=== PATIENT | male | born 2000 | race Caucasian/White ===

== ENCOUNTER 2020-02-16 10:11 | Emergency (ER) | payer OTHER ==
--- NOTE | 2020-02-16 12:18 | EDPHYS ---
Physician Documentation [facility] Name: Rajendra Whitehead Jr Age: 19 yrs Sex: Male : 2000 Arrival Date: 02/16/2020 Time: 10:17 Bed 16 Private MD: ED Physician Prasad Ndiaye HPI: 02/15 11:46 This 19 yrs old Male presents to ER via Ambulatory with complaints of High mh7 Blood Pressure, . 11:46 The patient has elevated blood pressure and discovered this at home, with a home mh7 device. Onset: The symptoms/episode began/occurred 6 month(s) ago. Modifying factors: The symptoms are aggravated by nothing, The symptoms are alleviated by prescription meds, RODGER-inhibitor. Associated signs and symptoms: Pertinent negatives: chest pain, dizziness, dyspnea, headache, lightheadedness, nausea, visual changes, vomiting, weakness. Severity of symptoms: At its worst the blood pressure was 134 mm Hg, in the emergency department the blood pressure is improved, markedly. The patient has experienced similar episodes in the past, chronically. Patient states that his blood pressure was slightly elevated before work today at 134/70. He states that he was just started on medication 4 days ago when BP was 180's. He states that he has had intermittent numbness/tingling sensation to his left foot for about 3 months. Denies any chest pain, SOB, abdominal pain, nausea, vomiting, dizziness, or weakness.. Historical: - Allergies: 11:02 No Known Allergies; ss - PSHx: 11:02 None; ss - Social history:: Smoking status: Patient reports the use of cigarette tobacco products, smokes one-half pack cigarettes per day, Patient uses alcohol, only on a social basis. Patient/guardian denies using street drugs. ROS: 11:46 Constitutional: Negative for fever, chills, and weight loss, Eyes: Negative for injury, mh7 pain, redness, and discharge, ENT: Negative for injury, pain, and discharge, Neck: Negative for injury, pain, and swelling, Cardiovascular: Negative for chest pain, palpitations, and edema, Respiratory: Negative for shortness of breath, cough, wheezing, and pleuritic chest pain, Abdomen/GI: Negative for abdominal pain, nausea, vomiting, diarrhea, and constipation, Back: Negative for injury and pain, : Negative for injury, bleeding, discharge, and swelling, Skin: Negative for injury, rash, and discoloration, Psych: Negative for depression, anxiety, suicide ideation, homicidal ideation, and hallucinations, Allergy/Immunology: Negative for hives, rash, and allergies, Endocrine: Negative for neck swelling, polydipsia, polyuria, polyphagia, and marked weight changes, Hematologic/Lymphatic: Negative for swollen nodes, abnormal bleeding, and unusual bruising. Exam: 11:46 Constitutional: This is a well developed, well nourished patient who is awake, alert, mh7 and in no acute distress. Head/Face: Normocephalic, atraumatic. Eyes: Pupils equal round and reactive to light, extra-ocular motions intact. Lids and lashes normal. Conjunctiva and sclera are non-icteric and not injected. Cornea within normal limits. Periorbital areas with no swelling, redness, or edema. ENT: Nares patent. No nasal discharge, no septal abnormalities noted. Tympanic membranes are normal and external auditory canals are clear. Oropharynx with no redness, swelling, or masses, exudates, or evidence of obstruction, uvula midline. Mucous membranes moist. Neck: Trachea midline, no thyromegaly or masses palpated, and no cervical lymphadenopathy. Supple, full range of motion without nuchal rigidity, or vertebral point tenderness. No Meningismus. Chest/axilla: Normal chest wall appearance and motion. Nontender with no deformity. No lesions are appreciated. Cardiovascular: Regular rate and rhythm with a normal S1 and S2. No gallops, murmurs, or rubs. Normal PMI, no JVD. No pulse deficits. Respiratory: Lungs have equal breath sounds bilaterally, clear to auscultation and percussion. No rales, rhonchi or wheezes noted. No increased work of breathing, no retractions or nasal flaring. Abdomen/GI: Soft, non-tender, with normal bowel sounds. No distension or tympany. No guarding or rebound. No evidence of tenderness throughout. Back: No spinal tenderness. No costovertebral tenderness. Full range of motion. Skin: Warm, dry with normal turgor. Normal color with no rashes, no lesions, and no evidence of cellulitis. MS/ Extremity: Pulses equal, no cyanosis. Neurovascular intact. Full, normal range of motion. Neuro: Awake and alert, GCS 15, oriented to person, place, time, and situation. Cranial nerves II-XII grossly intact. Motor strength 5/5 in all extremities. Sensory grossly intact. Cerebellar exam normal. Normal gait. Psych: Awake, alert, with orientation to person, place and time. Behavior, mood, and affect are within normal limits. Vital Signs: 11:00 BP 125 / 78; Pulse 106; Resp 17; Temp 98.4; Pulse Ox 100% ; Pain 3/10; ss 12:11 BP 129 / 70; Pulse 81; Resp 18; Pulse Ox 100% on R/A; ph 13:13 BP 127 / 72; Pulse 78; Resp 18; Temp 97.9; Pulse Ox 99% on R/A; ph MDM: 11:36 Patient medically screened. [facility] 12:15 Differential diagnosis: hypertensive crisis, Malignant HTN, parasthesias. Data [facility] reviewed: vital signs, nurses notes. Data interpreted: customer experience specialist: rate is 93 beats/min, rhythm is normal sinus rhythm, regular, Interpretation: normal rate, normal rhythm, Pulse oximetry: on room air is 100 %. Interpretation: normal. Counseling: I had a detailed discussion with the patient and/or guardian regarding: the historical points, exam findings, and any diagnostic results supporting the discharge/admit diagnosis, the need for outpatient follow up, to return to the emergency department if symptoms worsen or persist or if there are any questions or concerns that arise at home. Refusal of service: The patient/guardian displays adequate decision making capability and despite a detailed discussion of alternatives, benefits, risks, and consequences refuses: CT Scan, all lab tests, EKG. Administered Medications: No medications were administered Disposition: 02/16/20 12:17 Discharged to Home. Impression: Hypertension. - Condition is Stable. - Discharge Instructions: Hypertension, [id number]. - Work release form, Medication Reconciliation Form, Thank You Letter, Antibiotic Education, Prescription Opioid Use form. - Follow up: Private Physician; When: 1 - 2 days; Reason: Worsening of condition, Recheck today's complaints, Re-evaluation by your physician. - Problem is an ongoing problem. - Symptoms are resolved. Signatures: Ene Wray RN RN Angelita Ordoñez RN RN Prasad Ndiaye MD MD [facility] Corrections: (The following items were deleted from the chart) 13:13 12:17 02/16/2020 12:17 Discharged to Home. Impression: Hypertension. Condition is ph Stable. Forms are Medication Reconciliation Form, Thank You Letter, Antibiotic Education, Prescription Opioid Use. Follow up: Private Physician; When: 1 - 2 days; Reason: Worsening of condition, Recheck today's complaints, Re-evaluation by your physician. Problem is an ongoing problem. Symptoms are resolved. mh7
--- NOTE | 2020-02-16 12:18 | ER ---
Nurse's Notes [facility] Name: Rajednra Whitehead Jr Age: 19 yrs Sex: Male : 2000 Arrival Date: 02/16/2020 Time: 10:17 Bed 16 Private MD: Diagnosis: Hypertension Presentation: 02/15 11:00 Chief complaint: Patient states: BP has been elevated past week. Started new BP ss medication 4 days ago. Noticed left foot numbness today. Coronavirus screen: Proceed with normal triage. Patient denies a cough. Patient denies shortness of breath or difficulty breathing. Patient denies measured and/or subjective temperature greater than 100.4F prior to today's visit. Patient denies travel on a cruise ship or to a country the [facility] currently lists as an affected area. Patient denies contact with known and/or suspected case of COVID-19. Ebola Screen: Patient denies travel to an Ebola-affected area in the 21 days before illness onset. Initial Sepsis Screen: Does the patient meet any 2 criteria? HR > 90 bpm. No. Patient's initial sepsis screen is negative. Risk Assessment: Do you want to hurt yourself or someone else? Patient reports no desire to harm self or others. Onset of symptoms was February 12, 2020. 11:00 Method Of Arrival: Ambulatory ss 11:00 Acuity: MARY 3 ss 11:55 Initial Sepsis Screen: Does the patient have a suspected source of infection? No. ph Patient's initial sepsis screen is negative. Historical: - Allergies: 11:02 No Known Allergies; ss - PSHx: 11:02 None; ss - Social history:: Smoking status: Patient reports the use of cigarette tobacco products, smokes one-half pack cigarettes per day, Patient uses alcohol, only on a social basis. Patient/guardian denies using street drugs. Screenin:55 Abuse screen: Denies threats or abuse. Denies injuries from another. Nutritional ph screening: No deficits noted. Tuberculosis screening: No symptoms or risk factors identified. Fall Risk None identified. Assessment: 11:45 General: Appears in no apparent distress. comfortable, slender, well groomed, Behavior ph is calm, cooperative, appropriate for age, Denies fever, feeling ill. Pain: Denies pain. Neuro: Level of Consciousness is awake, alert, obeys commands, Oriented to person, place, time, situation, Reports paresthesias in left foot. Cardiovascular: Capillary refill < 3 seconds in bilateral fingers Patient's skin is warm and dry. Respiratory: Airway is patent Respiratory effort is even, unlabored, Respiratory pattern is regular, symmetrical. Derm: Skin is intact, is healthy with good turgor, Skin is pink, warm \T\ dry. Musculoskeletal: Circulation, motion, and sensation intact. Range of motion: intact in all extremities. Vital Signs: 11:00 BP 125 / 78; Pulse 106; Resp 17; Temp 98.4; Pulse Ox 100% ; Pain 3/10; ss 12:11 BP 129 / 70; Pulse 81; Resp 18; Pulse Ox 100% on R/A; ph 13:13 BP 127 / 72; Pulse 78; Resp 18; Temp 97.9; Pulse Ox 99% on R/A; ph ED Course: 10:17 Patient arrived in ED. mr 11:02 Triage completed. 11:03 Arm band placed on. 11:04 Prasad Ndiaye MD is Attending Physician. [facility] 11:22 Angelita Ordoñez, RN is Primary Nurse. ph 11:55 Patient has correct armband on for positive identification. Bed in low position. Call ph light in reach. Side rails up X 1. Pulse ox on. NIBP on. Door closed. Noise minimized. Warm blanket given. 13:13 No provider procedures requiring assistance completed. Patient did not have IV access ph during this emergency room visit. Administered Medications: No medications were administered Outcome: 12:17 Discharge ordered by . [facility] 13:13 Patient left the ED. ph 13:13 Discharged to home ambulatory. ph 13:13 Condition: good 13:13 Discharge instructions given to patient, Instructed on discharge instructions, follow up and referral plans. Demonstrated understanding of instructions, follow-up care. Signatures: PuentesSusana lopez mr WrayEne RN RN Angelita Ordoñez RN RN Prasad Ndiaye MD MD [facility]
[2020-02-16 13:21] VITALS: BP 127/72; TEMP 97.9; O2SAT 99
== END 2020-02-16 13:13 | disposition home or self-care (01) ==
LOC: ER 10:11
DX: I10 Essential (primary) hypertension (principal); F17.210 Nicotine dependence, cigarettes, uncomplicated
CPT/HCPCS: 99283

== ENCOUNTER 2021-08-20 20:05 | Emergency (ER) | payer OTHER, SELFPAY ==
--- OUTSIDE RECORDS SUMMARY | 2021-08-20 20:07 | XMS REPORT | Continuity of Care Document ---
:2000 Author Organization [facility] t Address [address] [place] [address] Care Team Providers Name Role Phone Chelsea OCHOA Attending Clinician Unavailable ALVARO HOOVER Attending Clinician Unavailable Kerry MOONEY Admitting Clinician Unavailable Kerry CHOWDARY Admitting Clinician Unavailable Problems This patient has no known problems. Allergies, Adverse Reactions, Alerts This patient has no known allergies or adverse reactions. Medications This patient has no known medications. Procedures This patient has no known procedures. Encounters Start End Encounter Admission Attending Care Care Encounter Source Date/Time Date/Time Type Type Clinicians Facility Department ID 2021-07-05 2021-08-02 Inpatient [id number] 18:11:00 14:48:00 [place]KE 2021-06-15 2021-07-05 Inpatient Briana HOOVER [facility] MED [id number] 08:13:00 18:10:00 [place] Results This patient has no known results.
[2021-08-20 21:04] LABS: Urine Blood Trace-intact (Negative); Urine Glucose Negative (Negative); Urine Protein Negative (Negative); Urine pH 6.5 (5.0-7.0)
--- NOTE | 2021-08-20 21:32 | RAD REPORT ---
EXAM DESCRIPTION: CT - Stone Protocol - 08/20/2021 9:09 pm CLINICAL HISTORY: HEMATURIA COMPARISON: No comparisons TECHNIQUE: Axial 3 mm thick images were obtained without oral or IV contrast. The [id number] span s the entirety of the system including uppermost abdomen and lung bases. All CT scans are performed using dose optimization technique as appropriate and may include automated exposure control or mA/KV adjustment according to patient size. FINDINGS: No hydronephrosis is present and no obstructing ureteral calculi. No nonobstructing calcul i seen. No suspicious renal masses. Isodense masses and pyelonephritis are not excluded on a stone pr otocol CT scan. No significant adrenal finding. Urinary bladder is partially contracted around a Fole y catheter. This accentuates bladder wall thickness. Cystitis cannot be accurately assessed in the ab sence of IV contrast. No prostate abnormality seen. Imaged portions of the liver, spleen and pancreas show no suspicious findings on non-contrast imaging . Gallbladder is contracted. No biliary tree dilatation. PEG tube is in place. No gastric wall thickening or gastric dilatation. No dilated large or small bow el loops. The appendix is normal. Left lateral and posterior rectal wall is slightly thickened. Proct itis cannot be excluded. There is minimal stranding in the left perirectal fat. A few small sub centi meter perirectal lymph nodes are present. No hernia, mass or bulky lymphadenopathy noted. No free air, free fluid or pneumatosis. Schmorl's nodes are seen in the inferior endplate L2 and superior endplate L3. There is irregular con tour to the inferior endplate of T9. This is the first image of the examination and no further assess ment can be made. Patient may have a known prior thoracic injury. Given the history, this is probably not of acute significance but can be correlated with patient history. IMPRESSION: No hydronephrosis, obstructing calculus or acute renal or ureteral finding. Isodense masses and pyelonephritis are not excluded on stone protocol technique. Urinary bladder is partially contracted around a Giraldo catheter. This accentuates bladder wall thicke paula. Cystitis cannot be evaluated in the setting of a contracted bladder and absence of IV contrast.
[2021-08-20 21:39] LABS: Urine Bacteria LOADED /HPF (NONE SEEN); Urine RBC <5 /HPF (NONE SEEN)
[2021-08-20] MEDS ORDERED: CIPROFLOXACIN HCL 500 MG TAB ONE (22:00)
--- NOTE | 2021-08-20 22:01 | ER ---
Nurse's Notes [facility] Name: Rajendra Whitehead Jr Age: 21 yrs Sex: Male : 2000 Arrival Date: 08/20/2021 Time: 20:41 Bed 16 Private MD: Diagnosis: UTI/ Urinary tract infection, site not specified Presentation: 08/20 21:24 Chief complaint: EMS states: pt is a recent paraplegic, family at home had issues sm5 straight cathing pt. Coronavirus screen: Client denies travel out of the [place] in the last 14 days. At this time, the client does not indicate any symptoms associated with coronavirus-19. Ebola Screen: No symptoms or risks identified at this time. Initial Sepsis Screen: Does the patient meet any 2 criteria? No. Patient's initial sepsis screen is negative. Does the patient have a suspected source of infection? No. Patient's initial sepsis screen is negative. Risk Assessment: Do you want to hurt yourself or someone else? Patient reports no desire to harm self or others. Onset of symptoms was August 20, 2021. 21:24 Method Of Arrival: EMS: [facility] 21:24 Acuity: MARY 4 5 Triage Assessment: 21:56 General: Appears in no apparent distress. Behavior is calm, cooperative. Pain: Denies sm5 pain. Neuro: No deficits noted. Level of Consciousness is awake, alert, Oriented to person, place, time, situation. Cardiovascular: No deficits noted. Capillary refill < 3 seconds Patient's skin is warm and dry. Respiratory: No deficits noted. Airway is patent Trachea midline Respiratory effort is even, unlabored. : Urine is cloudy. Historical: - Allergies: 21:53 No Known Allergies; sm5 - Home Meds: 21:53 senna oral [Active]; baclofen 10 mg Oral tab 1 tab 3 times per day [Active]; midodrine sm5 oral [Active]; duloxetine oral [Active]; pantoprazole oral [Active]; gabapentin oral 3 times per day [Active]; acetaminophen Oral [Active]; - Immunization history:: Adult Immunizations up to date. - Social history:: Smoking status: unknown. Screenin:52 Abuse screen: Denies threats or abuse. Denies injuries from another. Nutritional sm5 screening: No deficits noted. Tuberculosis screening: No symptoms or risk factors identified. Fall Risk None identified. Total Mccartney Fall Scale indicates No Risk (0-24 pts). Assessment: 22:00 Reassessment: see triage assessment. 5 08/21 01:00 Reassessment: Patient states feeling better. 5 03:28 Reassessment: Patient states feeling better. 5 Vital Signs: 08/20 21:24 BP 137 / 85; Pulse 77; Resp 18; Pulse Ox 96% on R/A; sm5 08/21 03:29 BP 129 / 76; Pulse 52; Resp 17; Pulse Ox 97% on R/A; 5 ED Course: 08/20 20:41 Patient arrived in ED. cs9 20:42 Crystal Rossi FNP-C is [facility]. kb 20:42 Prasad Ndiaye MD is Attending Physician. kb 20:45 Georgia Tolbert RN is Primary Nurse. 5 21:00 Giraldo cath inserted, using sterile technique, 16 Fr., by dc, balloon inflated, to 5 gravity drainage, clamped. urine specimen collected. 21:09 CT Stone Protocol In Process Unspecified. EDIA 21:26 Triage completed. 5 21:52 Arm band placed on right ankle. 5 21:56 Patient has correct armband on for positive identification. Bed in low position. Side 5 rails up X2. 08/21 03:29 No provider procedures requiring assistance completed. Patient did not have IV access 5 during this emergency room visit. Administered Medications: 08/20 22:03 Drug: Cipro (ciprofloxacin) 500 mg Route: PO; [facility] 08/21 03:30 Follow up: Response: No adverse reaction [facility] Outcome: 08/20 22:00 Discharge ordered by . kb 08/21 03:30 Discharged to home via ambulance. [facility] Condition: good Discharge instructions given to patient, Instructed on discharge instructions, follow up and referral plans. medication usage, Demonstrated understanding of instructions, follow-up care, medications, Prescriptions given X 1. 03:30 Patient left the ED. 5 Addendum: 08/23/2021 07:25 Addendum: Culture Results: Positive urine culture. No further action required. Bacteria e b sensitive to prescribed antibiotic. Signatures: Dispatcher [employer] EDIA Crystal Rossi FNP-C FNP-Ckb Ruth Cazares Christine cs9 Georgia Tolbert, RN RN sm5
--- NOTE | 2021-08-20 22:01 | EDPHYS ---
Physician Documentation [facility] Name: Rajendra Whitehead Jr Age: 21 yrs Sex: Male : 2000 Arrival Date: 08/20/2021 Time: 20:41 Bed 16 Private MD: ED Physician Prasad Ndiaye HPI: 08/20 21:58 This 21 yrs old Male presents to ER via EMS with complaints of Problem With Urinary kb Catheter. 21:58 The patient presents with a Giraldo catheter problem, unable to self cath, urinary kb symptoms, dysuria. Onset: The symptoms/episode began/occurred 2 day(s) ago. Modifying factors: The symptoms are alleviated by nothing, the symptoms are aggravated by nothing. Associated signs and symptoms: Pertinent positives: dysuria, hematuria, unable to self cath, Pertinent negatives: abdominal pain, constipation, diarrhea, fever, nausea, vomiting. Severity of symptoms: At their worst the symptoms were moderate, in the emergency department the symptoms are unchanged. The patient has not experienced similar symptoms in the past. The patient has not recently seen a physician. Pt states they have been unable to do a straight cath tonight and he feels like his bladder is full. States they have had increasing difficulty over the last 2 days. Reports he does feel some burning and has had some hematuria when trying to get cath in. . Historical: - Allergies: 21:53 No Known Allergies; sm5 - Home Meds: 21:53 senna oral [Active]; baclofen 10 mg Oral tab 1 tab 3 times per day [Active]; midodrine sm5 oral [Active]; duloxetine oral [Active]; pantoprazole oral [Active]; gabapentin oral 3 times per day [Active]; acetaminophen Oral [Active]; - Immunization history:: Adult Immunizations up to date. - Social history:: Smoking status: unknown. ROS: 21:56 Constitutional: Negative for fever, chills, and weight loss. kb 21:56 Abdomen/GI: Positive for abdominal distension, of the suprapubic area. 21:56 : Positive for burning with urination, unable to self cath today. 21:56 All other systems are negative. Exam: 21:56 Constitutional: This is a well developed, well nourished patient who is awake, alert, kb and in no acute distress. Head/Face: Normocephalic, atraumatic. Cardiovascular: Regular rate and rhythm with a normal S1 and S2. No gallops, murmurs, or rubs. No pulse deficits. Respiratory: Respirations even and unlabored. No increased work of breathing. Talking in full sentences Skin: Warm, dry with normal turgor. Normal color. MS/ Extremity: Pulses equal, no cyanosis. Neurovascular intact. Full, normal range of motion. Neuro: Awake and alert, GCS 15, oriented to person, place, time, and situation. Psych: Awake, alert, with orientation to person, place and time. Behavior, mood, and affect are within normal limits. 21:56 Abdomen/GI: Inspection: distension, that is mild, in the suprapubic area, Bowel sounds: normal, Palpation: abdomen is soft and non-tender. 21:56 Neuro: Exam negative for acute changes. Vital Signs: 21:24 BP 137 / 85; Pulse 77; Resp 18; Pulse Ox 96% on R/A; sm5 08/21 03:29 BP 129 / 76; Pulse 52; Resp 17; Pulse Ox 97% on R/A; sm5 MDM: 08/20 20:42 Patient medically screened. kb 21:56 Data reviewed: vital signs, nurses notes. Data interpreted: Pulse oximetry: on room air kb is 96 %. Interpretation: normal. Counseling: I had a detailed discussion with the patient and/or guardian regarding: the historical points, exam findings, and any diagnostic results supporting the discharge/admit diagnosis, lab results, radiology results, the need for outpatient follow up, a family practitioner, to return to the emergency department if symptoms worsen or persist or if there are any questions or concerns that arise at home. 08/20 20:48 Order name: Urine Culture kb 08/20 20:48 Order name: Urine Microscopic Only; Complete Time: 21:42 kb 08/20 20:48 Order name: CT Stone Protocol; Complete Time: 21:33 kb 08/20 20:48 Order name: Urine Dipstick-Ancillary (obtain specimen); Complete Time: 21:57 kb 08/20 21:04 Order name: Urine Dipstick-Ancillary; Complete Time: 21:16 EDMS 08/20 20:48 Order name: Giraldo; Complete Time: 20:58 kb Administered Medications: 22:03 Drug: Cipro (ciprofloxacin) 500 mg Route: PO; sm5 08/21 03:30 Follow up: Response: No adverse reaction [facility] Disposition: 04:05 Co-signature as Attending Physician, Prasad Ndiaye MD. mh7 Disposition Summary: 08/20/21 22:00 Discharge Ordered Location: Home kb Condition: Stable kb Diagnosis - UTI/ Urinary tract infection, site not specified kb Followup: kb - With: Emergency Department - When: As needed - Reason: Worsening of condition Followup: kb - With: Private Physician - When: 2 - 3 days - Reason: Recheck today's complaints, Continuance of care, Re-evaluation by your physician Discharge Instructions: - Discharge Summary Sheet kb - Urinary Tract Infection, Adult, [id number] kb Forms: - Medication Reconciliation Form kb - Thank You Letter kb - Antibiotic Education kb - Prescription Opioid Use kb Prescriptions: - Cipro 500 mg Oral Tablet - take 1 tablet by ORAL route every 12 hours for 10 days; 20 tablet; Refills: 0, kb Product Selection Permitted Signatures: Dispatcher [employer] EDMS Crystal Rossi, SHEARER SCREEN MEASURER AND TRIMMER-C SHEARER SCREEN MEASURER AND TRIMMER-Prasad Vigil MD MD 7 Georgia Tolbert, RN RN 5
[2021-08-21 03:39] VITALS: BP 129/76; O2SAT 97
== END 2021-08-21 03:30 | disposition home or self-care (01) ==
LOC: ER 20:05
DX: N39.0 Urinary tract infection, site not specified (principal)
CPT/HCPCS: 51702; 74176; 76377; 81003; 81015; 87077; 87086; 87088; 87186; 99284

== ENCOUNTER 2021-09-14 18:54 | Emergency (ER) | payer OTHER, SELFPAY ==
--- OUTSIDE RECORDS SUMMARY | 2021-09-14 18:57 | XMS REPORT | Continuity of Care Document ---
:2000 Author Organization [facility] t Address [facility] [address] [place] [address] Care Team Providers Name Role Phone RONNIE CHOWDARY Attending Clinician Unavailable Chelsea OCHOA Attending Clinician Unavailable ALVARO HOOVER Attending Clinician Unavailable Kerry MOONEY Admitting Clinician Unavailable Kerry CHOWDARY Admitting Clinician Unavailable Payers Payer Name Policy Type Policy Number Effective Date Expiration Date S ource PENDING MEDICAID Medicaid [id number] 2021 2024 00:00:00 00:00:00 Problems This patient has no known problems. Allergies, Adverse Reactions, Alerts This patient has no known allergies or adverse reactions. Medications This patient has no known medications. Procedures This patient has no known procedures. Encounters Start End Encounter Admission Attending Care Care Encounter Source Date/Time Date/Time Type Type Clinicians Facility Department ID 2021-09-14 Outpatient EPI [facility] [id number] [place] 01:03:26 [facility] 2021-07-05 2021-08-02 Inpatient DON [facility] MED [address] [facility] 18:11:00 14:48:00 [facility] 2021-06-15 2021-07-05 Inpatient Briana HOOVER [facility] MED [address] [facility] 08:13:00 18:10:00 [place] Results This patient has no known results.
[2021-09-14 20:22] LABS: Urine Blood 3+ (Negative); Urine Glucose Negative (Negative); Urine Protein 2+ (Negative); Urine Specific Gravity 1.015 (1.005-1.030)
[2021-09-14 20:31] LABS: Absolute Lymphocytes (CBC) 1.7 K/uL (0.7-4.9); Hematocrit 37.1 % (39.6-49.0); Lymphocytes % 35.2 % (15.3-44.8); MPV 7.8 fL (7.6-11.3); RBC Red Blood Cell Count 4.62 M/uL (4.33-5.43)
[2021-09-14 20:42] LABS: Urine Bacteria 20-50 /HPF (NONE SEEN); Urine Mucus 1+ /HPF (NONE SEEN); Urine RBC >50 /HPF (NONE SEEN)
[2021-09-14 20:49] LABS: BUN Blood Urea Nitrogen 12 mg/dL (7-18); Bicarbonate 27 mmol/L (21-32); Glucose Level 77 mg/dL (74-106); Potassium 3.9 mmol/L (3.5-5.1); Sodium Level 139 mmol/L (136-145)
[2021-09-14] MEDS ORDERED: CEFTRIAXONE 1000 MG/VIAL ONE (21:11)
[2021-09-14] MEDS ORDERED: NA CHLORIDE 0.9% 50 ML ONE (21:11)
--- NOTE | 2021-09-14 21:42 | ER ---
Nurse's Notes [facility] Name: Rajendra Whitehead Jr Age: 21 yrs Sex: Male : 2000 Arrival Date: 09/14/2021 Time: 18:57 Bed 6 Private MD: Diagnosis: UTI/ Urinary tract infection, site not specified Presentation: 09/14 19:01 Chief complaint: EMS states: they were called to the patients home because the family ap3 believes he has a UTI, and that his PEG tube may be infected. It is reported by the patient that the UTI is caused by the cornell catheter that was placed in July 2021 and has not been changed. Patient states the PEG tube has been in place since May and has not been accessed since 07/2021. It is also reported that there is an APS case for the patient, and the family says the patient does not have a safe discharge. Coronavirus screen: At this time, the client does not indicate any symptoms associated with coronavirus-19. Ebola Screen: No symptoms or risks identified at this time. Initial Sepsis Screen: Does the patient meet any 2 criteria? No. Patient's initial sepsis screen is negative. Does the patient have a suspected source of infection? No. Patient's initial sepsis screen is negative. Risk Assessment: Do you want to hurt yourself or someone else? Patient reports no desire to harm self or others. Onset of symptoms was September 14, 2021. 19:01 Method Of Arrival: EMS: [facility] ap3 19:01 Acuity: MARY 3 ap3 Triage Assessment: 19:15 General: Appears comfortable, Behavior is calm, cooperative. Pain: Denies pain. Neuro: ap3 Level of Consciousness is awake, alert, obeys commands, Oriented to person, place, time, patient is quadriplegic . Speech is normal. Cardiovascular: Patient's skin is warm and dry. Respiratory: Airway is patent Respiratory effort is even, unlabored. GI: PEG tube in place, Site reddened. scabbing around insertion site of PEG tube. : Cornell in place patient reports that the cornell has been in place since July, and has not been changed. Urine is cloudy. Historical: - Allergies: 19:05 No Known Allergies; ap3 - Home Meds: 19:05 Acetaminophen Oral [Active]; duloxetine Oral [Active]; baclofen 10 mg Oral tab 1 tab 3 ap3 times per day [Active]; gabapentin Oral 3 times per day [Active]; midodrine Oral [Active]; pantoprazole Oral [Active]; senna Oral [Active]; 19:09 Bisacodyl Oral [Active]; ap3 19:09 Lovenox 40 mg/0.4 mL Sub-Q syrg once daily [Active]; lidocaine-transparent dressing ap3 topical [Active]; Melatonin Oral [Active]; - Immunization history:: Client reports having NOT received the Covid vaccine. - Social history:: Smoking status: Patient denies any tobacco usage or history of. Screenin:17 Abuse screen: APS case prior to hospitalization. 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 Nutritional screening: No deficits noted. Tuberculosis screening: No symptoms or risk factors identified. Fall Risk None identified. Assessment: 19:49 General: Patient states " Feeding tube and catheter is what brought me in today. tw5 Possible infection, urinary tract infection.. Pain: Denies pain. Neuro: Level of Consciousness is awake, alert, obeys commands, Oriented to person, place, time, situation, Appropriate for age Speech is normal. Cardiovascular: Heart tones S1 S2. Respiratory: Airway is patent Trachea midline Respiratory effort is even, unlabored. GI: PEG tube in place, Site reddened. crusting noted around the site " It just feels like there is a muscle cramp in my stomach" Patient states "I have not used it since I used it". Derm: Musculoskeletal: Range of motion: limited in all extremities. 21:18 Reassessment: Patient appears in no apparent distress at this time. No changes from tw5 previously documented assessment. Patient and/or family updated on plan of care and expected duration. Pain level reassessed. 22:18 General: Appears in no apparent distress. tw5 Vital Signs: 19:01 BP 130 / 88; Pulse 70; Resp 18; Pulse Ox 100% on R/A; Weight 72.57 kg; Height 6 ft. ap3 (182.88 cm); 19:49 BP 113 / 72; Pulse 59; Resp 12; Pulse Ox 99% on R/A; tw5 20:17 BP 129 / 89; Pulse 49; Resp 14; Pulse Ox 100% on R/A; tw5 21:18 BP 112 / 63; Pulse 59; Resp 18; Pulse Ox 99% on R/A; tw5 22:18 BP 138 / 93; Pulse 48; Resp 18; Pulse Ox 98% on R/A; tw5 19:01 Body Mass Index 21.70 (72.57 kg, 182.88 cm) ap3 ED Course: 18:57 Patient arrived in ED. la1 19:05 Triage completed. ap3 19:17 Talib Stoddard NP is PHCP. pm1 19:17 Osmany Menendez MD is Attending Physician. pm1 19:18 Arm band placed on right wrist. ap3 19:18 Patient has correct armband on for positive identification. Bed in low position. Call ap3 light in reach. Side rails up X2. Pulse ox on. NIBP on. Door closed. Noise minimized. curtain left open so patient could call out due to him not having function of his hands to utilize call light. Warm blanket given. 19:21 Denise Hackett, RN is Primary Nurse. 19:49 Initial lab(s) drawn, by me, sent to lab. Inserted saline lock: 20 gauge in right tw5 antecubital area, using aseptic technique. Blood collected. 19:50 Cornell cath removed intact, balloon deflated, removed old cornell that the patient stated tw5 had been in since July. 19:58 Patient states " I would rather not have to wear a gown if that is okay, I am warmer in tw5 my own shirt.". Verbal reassurance given. 19:58 Cornell cath inserted, using sterile technique, 16 Fr., by me, balloon inflated, to tw5 gravity drainage, urine specimen collected. returned cloudy urine. Patient tolerated well. 20:17 BMP Sent. tw5 20:17 CBC with Diff Sent. tw5 20:17 Urine Microscopic Only Sent. tw5 21:09 Urine Culture Sent. tw5 21:18 Diet: Patient given snack. tw5 22:18 No provider procedures requiring assistance completed. IV discontinued, intact, tw5 bleeding controlled, No redness/swelling at site. Pressure dressing applied. Administered Medications: 21:18 Drug: Rocephin (cefTRIAXone) 1 grams Route: IV; Rate: calculated rate; Site: right tw5 antecubital; 22:19 Follow up: Response: No adverse reaction; IV Status: Completed infusion; IV Intake: [id number] Intake: 22:19 IV: 50ml; Total: 50ml. tw5 Outcome: 21:42 Discharge ordered by . pm1 22:18 Discharged to home via ambulance. tw5 22:18 Condition: unchanged 22:18 Discharge instructions given to patient, Instructed on discharge instructions, follow up and referral plans. medication usage, Demonstrated understanding of instructions, follow-up care, medications, Prescriptions given X 1. 22:19 Patient left the ED. tw5 Signatures: Luis Robertson, ADZING AND BORING MACHINE FEEDER-C ADZING AND BORING MACHINE FEEDER-Cla1 Talib Stoddard, RATTLE LEAK AND SQUEAK REPAIRER RATTLE LEAK AND SQUEAK REPAIRER pm1 Any Hoover RN RN Madonna Bowles tw5 Denise Hackett, RN RN mk Corrections: (The following items were deleted from the chart) 20:17 19:58 Cornell cath inserted, using sterile technique, 16 Fr., by mo, balloon inflated, to tw5 gravity drainage, urine specimen collected. returned clear yellow urine. Patient tolerated well. tw5
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
[2021-09-14 22:34] VITALS: BP 138/93; O2SAT 98
== END 2021-09-14 22:19 | disposition home or self-care (01) ==
LOC: ER 18:54
DX: N39.0 Urinary tract infection, site not specified (principal)
CPT/HCPCS: 36415; 51702; 80048; 81003; 81015; 85025; 87077; 87086; 87088; 87186; 96365; 99284

== ENCOUNTER 2021-09-14 23:44 | Inpatient (IN) | payer OTHER, SELFPAY ==
--- OUTSIDE RECORDS SUMMARY | 2021-09-14 23:47 | XMS REPORT | Continuity of Care Document ---
:2000 Author Organization [facility] t Address [address] [place] [address] Care Team Providers Name Role Phone RONNIE CHOWDARY Attending Clinician Unavailable Chelsea OCHOA Attending Clinician Unavailable ALVARO HOOVER Attending Clinician Unavailable Kerry MOONEY Admitting Clinician Unavailable Kerry CHOWDARY Admitting Clinician Unavailable Payers Payer Name Policy Type Policy Number Effective Date Expiration Date S ource PENDING MEDICAID Medicaid [id number] 2021 2024 00:00:00 00:00:00 Problems This patient has no known problems. Allergies, Adverse Reactions, Alerts This patient has no known allergies or adverse reactions. Medications This patient has no known medications. Procedures This patient has no known procedures. Encounters Start End Encounter Admission Attending Care Care Encounter Source Date/Time Date/Time Type Type Clinicians Facility Department ID 2021-09-14 Outpatient EPI [facility] [id number] [place] 01:03:26 [facility] 2021-07-05 2021-08-02 Inpatient DON [facility] MED [address] [facility] 18:11:00 14:48:00 [facility] 2021-06-15 2021-07-05 Inpatient Briana HOOVER [facility] MED 7[address] [facility] 08:13:00 18:10:00 [place] Results This patient has no known results.
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
[2021-09-15] MEDS ORDERED: BACLOFEN 10 MG TAB PO PRN (02:52)
[2021-09-15] MEDS ORDERED: ONDANSETRON 4 MG/2 ML VIAL IV PRN (02:52)
[2021-09-15] MEDS: HYDROCODONE/APAP 5/325 MG TAB PO PRN ×2 (03:29→15:56)
[2021-09-15 05:09] LABS: Urine Appearance TURBID (Clear); Urine Bilirubin NEGATIVE (Negative); Urine Blood 3+ (Negative); Urine Color DK YELLOW (Yellow); Urine Glucose NEGATIVE (Negative); Urine Protein 2+ (Negative); Urine Specific Gravity >=1.030 (1.005-1.030); Urine Urobilinogen 0.2 mg/dL (0.2-1.0); Urine pH 5.5 (5.0-7.0)
[2021-09-15 05:11] LABS: Urine Microscopic Reflex ORDER UMIC
[2021-09-15 05:29] LABS: Urine Bacteria >50 /HPF (NONE SEEN); Urine Mucus 2+ /HPF (NONE SEEN)
[2021-09-15] MEDS: CEFTRIAXONE 1,000 MG in NA CHLORIDE 0.9% 50 ML IVPB SCH (07:59)
[2021-09-15] MEDS: ENOXAPARIN 40 MG/0.4 ML SQ SCH (08:00)
[2021-09-15 08:12] VITALS: O2SAT 98
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
[2021-09-15] MEDS ORDERED: DOCUSATE NA/SENNA CONC 1 TAB PO SCH (11:00)
[2021-09-15] MEDS: BACLOFEN 10 MG TAB PO SCH (21:55)
[2021-09-15] MEDS: GABAPENTIN 300 MG CAP PO SCH (21:55)
[2021-09-16 01:48] VITALS: BMI 3124.4
[2021-09-16] MEDS: GABAPENTIN 300 MG CAP PO SCH ×2 (08:55→20:48)
[2021-09-16] MEDS: BACLOFEN 10 MG TAB PO SCH ×2 (08:55→20:50)
[2021-09-16] MEDS: PANTOPRAZOLE 40MG TABLET PO SCH (08:55)
[2021-09-16] MEDS: MIDODRINE HCL 5 MG TABLET PO SCH (08:55)
[2021-09-16] MEDS: DULOXETINE 20 MG CAP PO SCH (08:55)
[2021-09-16] MEDS: ENOXAPARIN 40 MG/0.4 ML SQ SCH (08:56)
[2021-09-16] MEDS: CEFTRIAXONE 1,000 MG in NA CHLORIDE 0.9% 50 ML IVPB SCH (08:57)
[2021-09-16] MEDS ORDERED: MIDODRINE HCL 2.5 MG PO SCH (09:00)
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
[2021-09-16] MEDS: HYDROCODONE/APAP 5/325 MG TAB PO PRN ×2 (12:25→21:02)
[2021-09-16] MEDS: BISACODYL 10 MG RECTAL SUPP PR PRN (14:42)
[2021-09-16] MEDS: AMOX/K CLAV 875 MG TAB PO SCH (20:48)
[2021-09-17] MEDS: ENOXAPARIN 40 MG/0.4 ML SQ SCH (09:00)
[2021-09-17] MEDS: BACLOFEN 10 MG TAB PO SCH ×2 (09:27→20:18)
[2021-09-17] MEDS: HYDROCODONE/APAP 5/325 MG TAB PO PRN ×2 (09:28→20:18)
[2021-09-17] MEDS: MIDODRINE HCL 5 MG TABLET PO SCH (09:28)
[2021-09-17] MEDS: GABAPENTIN 300 MG CAP PO SCH ×2 (09:29→20:18)
[2021-09-17] MEDS: AMOX/K CLAV 875 MG TAB PO SCH ×2 (09:29→20:18)
[2021-09-17] MEDS: DULOXETINE 20 MG CAP PO SCH (09:29)
[2021-09-17] MEDS: PANTOPRAZOLE 40MG TABLET PO SCH (09:29)
[2021-09-18] MEDS: PANTOPRAZOLE 40MG TABLET PO SCH (08:48)
[2021-09-18] MEDS: HYDROCODONE/APAP 5/325 MG TAB PO PRN ×3 (08:48→21:25)
[2021-09-18] MEDS: AMOX/K CLAV 875 MG TAB PO SCH (08:48)
[2021-09-18] MEDS: ENOXAPARIN 40 MG/0.4 ML SQ SCH (08:48)
[2021-09-18] MEDS: BACLOFEN 10 MG TAB PO SCH ×2 (08:48→21:00)
[2021-09-18] MEDS: GABAPENTIN 300 MG CAP PO SCH ×2 (08:48→21:25)
[2021-09-18] MEDS: DULOXETINE 20 MG CAP PO SCH (08:48)
[2021-09-18] MEDS: MIDODRINE HCL 5 MG TABLET PO SCH (08:49)
[2021-09-18] MEDS: CEFEPIME 1 GM in NA CHLORIDE 0.9% 100 ML IV SCH (21:00)
[2021-09-18] MEDS ORDERED: NA CHLORIDE 0.9% 100 ML ONE (21:19)
[2021-09-18] MEDS ORDERED: HYDROCORTISONE SUC 100 MG INJ IV ONE (22:22)
[2021-09-19 07:13] LABS: Absolute Lymphocytes (CBC) 1.4 K/uL (0.7-4.9); Hematocrit 39.4 % (39.6-49.0); Lymphocytes % 21.7 % (15.3-44.8); MPV 8.1 fL (7.6-11.3); RBC Red Blood Cell Count 4.85 M/uL (4.33-5.43)
[2021-09-19 07:37] LABS: BUN Blood Urea Nitrogen 9 mg/dL (7-18); Bicarbonate 28 mmol/L (21-32); Glucose Level 115 mg/dL (74-106); Magnesium 2.1 mg/dL (1.8-2.4); Potassium 4.2 mmol/L (3.5-5.1); Sodium Level 138 mmol/L (136-145)
[2021-09-19] MEDS: CEFEPIME 1 GM in NA CHLORIDE 0.9% 100 ML IV SCH ×2 (08:05→21:00)
[2021-09-19] MEDS: HYDROCORTISONE SUC 100 MG INJ IV SCH ×2 (08:07→21:00)
[2021-09-19] MEDS: DULOXETINE 20 MG CAP PO SCH (08:07)
[2021-09-19] MEDS: MIDODRINE HCL 5 MG TABLET PO SCH (08:07)
[2021-09-19] MEDS: GABAPENTIN 300 MG CAP PO SCH ×2 (08:08→21:00)
[2021-09-19] MEDS: ENOXAPARIN 40 MG/0.4 ML SQ SCH (08:08)
[2021-09-19] MEDS: HYDROCODONE/APAP 5/325 MG TAB PO PRN (08:08)
[2021-09-19] MEDS: PANTOPRAZOLE 40MG TABLET PO SCH (08:08)
[2021-09-19] MEDS: BACLOFEN 10 MG TAB PO SCH ×2 (08:12→21:00)
[2021-09-19] MEDS: BISACODYL 10 MG RECTAL SUPP PR PRN (17:49)
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
[2021-09-20] MEDS: MIDODRINE HCL 5 MG TABLET PO SCH (08:15)
[2021-09-20] MEDS: BACLOFEN 10 MG TAB PO SCH (08:15)
[2021-09-20] MEDS: HYDROCORTISONE SUC 100 MG INJ IV SCH (08:15)
[2021-09-20] MEDS: PANTOPRAZOLE 40MG TABLET PO SCH (08:15)
[2021-09-20] MEDS: ENOXAPARIN 40 MG/0.4 ML SQ SCH (08:16)
[2021-09-20] MEDS: CEFEPIME 1 GM in NA CHLORIDE 0.9% 100 ML IV SCH (08:16)
[2021-09-20] MEDS: DULOXETINE 20 MG CAP PO SCH (08:16)
[2021-09-20] MEDS: GABAPENTIN 300 MG CAP PO SCH (08:16)
[2021-09-20] MEDS: HYDROCODONE/APAP 5/325 MG TAB PO PRN (08:16)
--- NOTE | 2021-09-20 10:33 | RAD REPORT ---
EXAM DESCRIPTION: RAD - Chest Single View - 09/20/2021 10:19 am CLINICAL HISTORY: picc placement COMPARISON: No comparisons FINDINGS: Portable chest was obtained following placement of a left upper extremity PICC line. The c atheter tip projects over the SVC..
[2021-09-20 10:55] VITALS: TEMP 97.7
[2021-09-20 14:06] VITALS: BP 118/59
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
== END 2021-09-20 12:35 | DRG 698 ==
LOC: ER 23:44 → ERHOLD 09-15 01:00 → 4TH 09-15 01:46 → OBSVTOIN 09-15 16:11
PROVIDERS: ADMIT Internal Medicine; ATTEND Hospitalist
PROC: 02HV33Z Insertion of Infusion Device into Superior Vena Cava, Percutaneous Approach (ICD-10-PCS; principal; 2021-09-20)
DX: T83.511A Infection and inflammatory reaction due to indwelling urethral catheter, initial encounter (principal); G82.50 Quadriplegia, unspecified; N39.0 Urinary tract infection, site not specified; B96.5 Pseudomonas (aeruginosa) (mallei) (pseudomallei) as the cause of diseases classified elsewhere; R33.9 Retention of urine, unspecified; Z93.1 Gastrostomy status; Z87.891 Personal history of nicotine dependence; Z79.899 Other long term (current) drug therapy
CPT/HCPCS: 36415; 36569; 71045; 80048; 81003; 81015; 83735; 85025; 87070; 87077; 87186; 87205; 97110; 97161; 97530; 99285; G0378; J0692; J1650; J1720; U0003